=== PATIENT | male | born 1965 | race Caucasian/White ===

== ENCOUNTER 2018-03-19 15:55 | Emergency (ER) | payer BC ==
[~2018-03-19] VITALS: Ht 182.9 cm; Wt 95.3 kg
[2018-03-19] MEDS ORDERED: FAMOTIDINE. 20 MG/2 ML VIAL IV ONE ×2 (16:23→16:30)
[2018-03-19] MEDS ORDERED: diphenhydrAMINE 50 MG/1 ML VIAL ONE (16:23)
[2018-03-19] MEDS ORDERED: methylPREDNISolone SOD SUCC 125 MG/2 ML VIAL ONE (16:23)
[2018-03-19] MEDS ORDERED: methylPREDNISolone SOD SUCC 125 MG/2 ML VIAL IV ONE (16:30)
[2018-03-19] MEDS ORDERED: diphenhydrAMINE 50 MG/1 ML VIAL IV ONE (16:30)
[2018-03-19] MEDS ORDERED: VANCOMYCIN 1G/D5W 200 ML PIGGYBACK IV ONE (17:15)
[2018-03-19] MEDS ORDERED: VANCOMYCIN IV 200 ML ONE (17:18)
--- NOTE | 2018-03-19 18:42 | NUR ---
Patient is resting comfortably in bed with eyes closed, NAD noted.
--- NOTE | 2018-03-19 19:02 | NUR ---
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
--- NOTE | 2018-03-19 19:15 | NUR ---
Patient discharged to home in stable conditon. Written and verbal after care instructions given. Patient verbalizes understanding of instructions. Pt ambulated out of ER with steady gait, no acute signs of distress, VSS, all belongings taken, IV site discontinued.
[2018-03-19 19:30] VITALS: BP 142/83
== END 2018-03-19 19:30 | disposition home or self-care (01) ==
LOC: ER 15:56
DX: T63.481A Toxic effect of venom of other arthropod, accidental (unintentional), initial encounter (principal); L03.113 Cellulitis of right upper limb; F17.200 Nicotine dependence, unspecified, uncomplicated; Y92.89 Other specified places as the place of occurrence of the external cause
CPT/HCPCS: 96365; 96366; 96375; 99285; J1200; J2930; J3370; J3490; A4663